=== PATIENT | female | born 1935 | race African-American/Black ===

== ENCOUNTER 2018-01-06 12:12 | Inpatient (IN) | payer MEDICARE, OTHER ==
[~2018-01-06] VITALS: Ht 165.1 cm; Wt 64.9 kg
[2018-01-06 13:13] LABS: CHLORIDE 100 mEq/L (98-107)
[2018-01-06 13:18] LABS: BASOPHILS % 0.3 % (0.0-2.0); HEMATOCRIT. 35.6 % (36.0-48.0); HEMOGLOBIN. 11.9 g/dL (12.0-16.0); LYMPHOCYTES % 17.4 % (20.0-50.0); MEAN CORPUSCULAR HEMOGLOBIN 26.5 pg (28.0-32.0); MEAN CORPUSCULAR VOLUME 79.3 fL (81.0-99.0); MEAN PLATELET VOLUME 8.5 fl (7.4-10.4); MONOCYTES % 5.7 % (2.0-8.0); NEUTROPHILS % 76.6 % (40.0-76.0); PLATELET 238 x1000/uL (130-400); RED BLOOD CELL COUNT 4.49 mill/uL (4.2-5.4); RED CELL DISTRIBUTION WIDTH 14.7 % (11.6-14.6)
[2018-01-06] MEDS ORDERED: ASPIRIN 81MG TABLET PO ONE (14:15)
[2018-01-06 15:57] LABS: INR 1.1; PROTHROMBIN TIME 10.8 sec (9.1-11.1)
[2018-01-06 16:27] LABS: CLARITY URINE TURBID (CLEAR); COLOR URINE YELLOW (YELLOW); KETONES URINE NEGATIVE (NEGATIVE); LEUKOCYTE ESTERASE URINE 1+ (NEGATIVE); NITRITE URINE NEGATIVE (NEGATIVE); OCCULT BLOOD URINE 1+ (NEGATIVE); PROTEIN URINE NEGATIVE (NEGATIVE); SPECIFIC GRAVITY URINE 1.012 (1.005-1.030)
[2018-01-06] MEDS ORDERED: HYDROCODONE/ACETAMINOPHEN 5/325MG TABLET PO PRN (17:00)
[2018-01-06] MEDS ORDERED: MORPHINE SULFATE 4 MG/ML CPJ (NOT FOR IM USE) IV PRN (17:00)
[2018-01-06] MEDS ORDERED: NA PHOS,M-B/NA PHOS,DI-BA ENEMA 118ML PR PRN (17:00)
[2018-01-06] MEDS ORDERED: DIPHENHYDRAMINE 50MG/ML VIAL IV PRN (17:00)
[2018-01-06] MEDS ORDERED: MAGNESIUM/ALUMINUM HYDROXIDE/SIMETHICONE 30ML UDC PO PRN (17:00)
[2018-01-06] MEDS ORDERED: CLONIDINE 0.1MG TABLET PO PRN (17:00)
[2018-01-06] MEDS ORDERED: IPRATROPIUM/ALBUTEROL 0.5-3(2.5)MG/3ML NEB INH PRN (17:00)
[2018-01-06] MEDS ORDERED: DOCUSATE SODIUM 100MG CAPSULE PO PRN (17:00)
[2018-01-06] MEDS ORDERED: LORAZEPAM 2MG/ML CPJ IV PRN (17:00)
[2018-01-06] MEDS ORDERED: ONDANSETRON HCL 4MG/2ML INJ IV PRN (17:00)
[2018-01-06] MEDS: GUAIFENESIN 200MG/10ML SUGAR FREE UDC PO PRN (21:48)
[2018-01-06 22:20] VITALS: BP 123/57
[2018-01-06 23:00] VITALS: BP_SYST 123; BP_SYST 125; BP_DIAS 57; BP_DIAS 65
[2018-01-07] VITALS: BP 123/57
[2018-01-07 00:42] LABS: CREATINE KINASE 366 IU/L (26-192)
[2018-01-07 00:43] LABS: CREATINE KINASE MB FRACTION 1.5 ng/mL (0.5-3.6)
[2018-01-07 04:00] VITALS: BP 118/47
[2018-01-07 06:32] LABS: BASOPHILS % 0.4 % (0.0-2.0); EOSINOPHILS % 0.1 % (0.0-5.0); HEMATOCRIT. 35.8 % (36.0-48.0); HEMOGLOBIN. 12.3 g/dL (12.0-16.0); LYMPHOCYTES % 24.6 % (20.0-50.0); MEAN CORPUSCULAR VOLUME 78.8 fL (81.0-99.0); MONOCYTES % 8.4 % (2.0-8.0); NEUTROPHILS % 66.5 % (40.0-76.0); PLATELET 245 x1000/uL (130-400); RED BLOOD CELL COUNT 4.55 mill/uL (4.2-5.4); RED CELL DISTRIBUTION WIDTH 14.2 % (11.6-14.6)
[2018-01-07 06:46] LABS: CHLORIDE 100 mEq/L (98-107)
[2018-01-07 07:03] LABS: CREATINE KINASE 458 IU/L (26-192)
[2018-01-07 07:12] LABS: CREATINE KINASE MB FRACTION 1.3 ng/mL (0.5-3.6)
[2018-01-07 08:00] VITALS: BP 107/60
[2018-01-07] MEDS: ASPIRIN 81MG EC TABLET PO SCH (09:25)
[2018-01-07] MEDS: ENOXAPARIN 40MG/0.4ML SYR SUBCUT SCH (09:26)
[2018-01-07] MEDS ORDERED: POTASSIUM CHLORIDE 20MEQ TABLET SR PO NR (09:45)
[2018-01-07] MEDS ORDERED: VALS1TAB74 MT (10:49)
[2018-01-07] MEDS ORDERED: LEVO25TA7 MT (10:50)
[2018-01-07] MEDS: GUAIFENESIN 200MG/10ML SUGAR FREE UDC PO PRN ×2 (11:22→20:55)
[2018-01-07 12:00] VITALS: BP 112/58
[2018-01-07] MEDS: ACETAMINOPHEN 325MG TABLET PO PRN (13:47)
[2018-01-07 16:00] VITALS: BP 113/59
[2018-01-07] MEDS ORDERED: LEVOFLOXACIN 500MG PREMIX 100 ML IV SCH (16:00)
[2018-01-07 20:00] VITALS: BP 97/57
[2018-01-08] VITALS: BP 110/60
[2018-01-08 04:00] VITALS: BP 116/64
[2018-01-08 05:31] LABS: BASOPHILS % 0.4 % (0.0-2.0); EOSINOPHILS % 0.2 % (0.0-5.0); HEMATOCRIT. 34.6 % (36.0-48.0); HEMOGLOBIN. 11.7 g/dL (12.0-16.0); LYMPHOCYTES % 33.3 % (20.0-50.0); MEAN CORPUSCULAR HEMOGLOBIN 26.7 pg (28.0-32.0); MEAN PLATELET VOLUME 8.1 fl (7.4-10.4); MONOCYTES % 10.9 % (2.0-8.0); NEUTROPHILS % 55.2 % (40.0-76.0); PLATELET 259 x1000/uL (130-400); RED BLOOD CELL COUNT 4.38 mill/uL (4.2-5.4); RED CELL DISTRIBUTION WIDTH 14.5 % (11.6-14.6)
[2018-01-08 07:33] LABS: CHLORIDE 101 mEq/L (98-107)
[2018-01-08 08:00] VITALS: BP 107/61
[2018-01-08] MEDS: ENOXAPARIN 40MG/0.4ML SYR SUBCUT SCH (09:28)
[2018-01-08] MEDS: ASPIRIN 81MG EC TABLET PO SCH (09:28)
[2018-01-08 12:00] VITALS: BP 104/48
[2018-01-08] MEDS: GUAIFENESIN 200MG/10ML SUGAR FREE UDC PO PRN ×2 (12:26→20:49)
[2018-01-08 16:00] VITALS: BP 119/64
[2018-01-08] MEDS: LEVOFLOXACIN 250MG PREMIX 50 ML IV SCH (16:11)
[2018-01-08 20:00] VITALS: BP 118/67
[2018-01-09] VITALS: BP 119/63
[2018-01-09] MEDS: ACETAMINOPHEN 325MG TABLET PO PRN (03:48)
[2018-01-09 04:00] VITALS: BP 113/65
[2018-01-09 06:23] LABS: CHLORIDE 104 mEq/L (98-107)
[2018-01-09 06:30] LABS: BASOPHILS % 0.4 % (0.0-2.0); EOSINOPHILS % 0.2 % (0.0-5.0); HEMATOCRIT. 34.4 % (36.0-48.0); HEMOGLOBIN. 11.7 g/dL (12.0-16.0); LYMPHOCYTES % 50.9 % (20.0-50.0); MEAN CORPUSCULAR HEMOGLOBIN 26.8 pg (28.0-32.0); MEAN PLATELET VOLUME 7.9 fl (7.4-10.4); MONOCYTES % 10.6 % (2.0-8.0); NEUTROPHILS % 37.9 % (40.0-76.0); PLATELET 266 x1000/uL (130-400); RED BLOOD CELL COUNT 4.35 mill/uL (4.2-5.4)
[2018-01-09] MEDS ORDERED: POTASSIUM CHLORIDE 20MEQ TABLET SR PO SCH (07:30)
[2018-01-09 08:00] VITALS: BP 105/49
[2018-01-09] MEDS: LEVOFLOXACIN 250MG PREMIX 50 ML IV SCH (10:11)
[2018-01-09] MEDS: ASPIRIN 81MG EC TABLET PO SCH (10:11)
[2018-01-09] MEDS: ENOXAPARIN 40MG/0.4ML SYR SUBCUT SCH (10:12)
[2018-01-09] MEDS ORDERED: LEVO250T58 MT (12:06)
[2018-01-09 12:08] VITALS: BP 105/76
== END 2018-01-09 12:30 | disposition home or self-care (01) | DRG 74 ==
LOC: ER 12:12 → 5WST 15:26 → EDBEDREQ 15:34 → EDBEDREQTM 15:34 → ENRESERV 21:12
PROVIDERS: ADMIT Internal Medicine; ATTEND Internal Medicine
DX: G90.8 Other disorders of autonomic nervous system (principal); N39.0 Urinary tract infection, site not specified; E44.0 Moderate protein-calorie malnutrition; E87.6 Hypokalemia; I10 Essential (primary) hypertension; E03.9 Hypothyroidism, unspecified; Z88.0 Allergy status to penicillin; Z87.440 Personal history of urinary (tract) infections; Z82.49 Family history of ischemic heart disease and other diseases of the circulatory system
CPT/HCPCS: 36415; 71045; 80048; 82550; 82553; 84439; 84443; 84484; 93005; 93306; 93880; 99285; J1650; J1956

== ENCOUNTER 2022-04-18 18:16 | Emergency (ER) | payer MEDICARE, OTHER ==
[~2022-04-18] VITALS: Ht 167.6 cm; Wt 67.0 kg
[~2022-04-18 18:16] MED LIST: LEVO250T74 MT; LEVO25TA7 MT; VALS1TAB75 MT
[2022-04-18] MEDS ORDERED: SODIUM CHLORIDE 0.9% 1,000 ML IV ONE (18:45)
[2022-04-18 23:51] LABS: BASOPHILS % 0.6 % (0.0-2.0); EOSINOPHILS % 0.4 % (0.0-5.0); HEMATOCRIT. 39.2 % (36.0-48.0); HEMOGLOBIN. 12.7 g/dL (12.0-16.0); LYMPHOCYTES % 21.7 % (20.0-50.0); MEAN CORPUSCULAR VOLUME 80.5 fL (81.0-99.0); MEAN PLATELET VOLUME 7.7 fl (7.4-10.4); MONOCYTES % 5.3 % (2.0-8.0); PLATELET 280 x1000/uL (130-400); RED BLOOD CELL COUNT 4.87 mill/uL (4.2-5.4); RED CELL DISTRIBUTION WIDTH 14.6 % (11.6-14.6)
[2022-04-19 00:07] LABS: CHLORIDE 110 mEq/L (98-107)
[2022-04-19 01:21] LABS: CLARITY URINE CLEAR (CLEAR); COLOR URINE YELLOW (YELLOW); KETONES URINE NEGATIVE (NEGATIVE); LEUKOCYTE ESTERASE URINE 1+ (NEGATIVE); NITRITE URINE NEGATIVE (NEGATIVE); OCCULT BLOOD URINE NEGATIVE (NEGATIVE); PROTEIN URINE NEGATIVE (NEGATIVE); SPECIFIC GRAVITY URINE 1.011 (1.005-1.030); UROBILINOGEN URINE 0.2 E.U./dL (0.2-1.0)
[2022-04-19 01:50] LABS: *AMPHETAMINES SCREEN URINE NEGATIVE (NEGATIVE); *BARBITURATES SCREEN URINE NEGATIVE (NEGATIVE); *BENZODIAZEPINES SCREEN URINE NEGATIVE (NEGATIVE); *COCAINE SCREEN URINE NEGATIVE (NEGATIVE); CANNABINOID URINE SCREEN PRESUMTIVE POSITIVE (NEGATIVE); METHADONE URINE SCREEN NEGATIVE (NEGATIVE); OPIATES URINE SCREEN NEGATIVE (NEGATIVE); PHENCYCLIDINE URINE SCREEN NEGATIVE (NEGATIVE)
[2022-04-19] MEDS ORDERED: SULF1TAB48 MT (02:18)
[2022-04-19 02:26] VITALS: BP 114/82
== END 2022-04-19 03:19 | disposition home or self-care (01) ==
LOC: ER 18:16
DX: R55 Syncope and collapse (principal); E86.0 Dehydration; N39.0 Urinary tract infection, site not specified; F03.90 Unspecified dementia, unspecified severity, without behavioral disturbance, psychotic disturbance, mood disturbance, and anxiety; I10 Essential (primary) hypertension; E03.9 Hypothyroidism, unspecified; F12.10 Cannabis abuse, uncomplicated; Z88.0 Allergy status to penicillin
CPT/HCPCS: 36415; 70450; 71045; 80053; 80305; 81003; 84484; 85025; 96360; 96361; 99285; J7030